=== PATIENT | male | born 1955 | race Asian ===

== ENCOUNTER 2017-10-29 07:55 | Inpatient (IN) | payer OTHER ==
[~2017-10-29] VITALS: Ht 160 cm; Wt 77.1 kg
[2017-10-29 07:56] VITALS: Ht 160 cm; Wt 77.1 kg
[2017-10-29 09:16] LABS: PLATELET COUNT 365 x10^3mcL (130-400)
[2017-10-29 09:23] LABS: BASOPHIL % 0 % (0-2); CALCIUM 8.5 mg/dL (8.5-10.1); CARBON DIOXIDE 28.4 mmol/L (21-32); CREATININE SERUM 1.4 mg/dL (0.7-1.3); POTASSIUM SERUM 3.9 mmol/L (3.5-5.1); RED CELL DISTRIBUTION WIDTH 21.2 % (11.5-14.5)
[2017-10-29 09:29] LABS: ALBUMIN 3.5 g/dL (3.4-5.0); BILIRUBIN TOTAL 0.28 mg/dL (0.20-1.00); PHOSPHOROUS 3.4 mg/dL (2.5-4.9); TOTAL PROTEIN, SERUM 6.8 g/dL (6.4-8.2)
[2017-10-29 09:53] LABS: ovalocyte/elliptocyte 2+; rbc morphology (normal/abnorm) ABNORMAL (NORMAL)
[2017-10-29] MEDS ORDERED: LOSARTAN POTASS50 M1 PO (10:01)
[2017-10-29] MEDS ORDERED: NOR5 PO (10:02)
[2017-10-29] MEDS ORDERED: METFORMIN HCL500 MG PO (10:03)
[2017-10-29] MEDS ORDERED: PRAVASTATIN SOD20 M1 PO (10:04)
[2017-10-29] MEDS ORDERED: FENOFIBRATE MI134 MG PO (10:05)
[2017-10-29] MEDS ORDERED: DILTIAZEM HCL30 MG PO (10:06)
[2017-10-29] MEDS ORDERED: ALLOPURINOL300 M1 PO (10:07)
[2017-10-29] MEDS ORDERED: GLIMEPIRIDE2 M1 PO (10:08)
[2017-10-29 10:13] LABS: microscopic required? NO
[2017-10-29 10:46] LABS: urine erythrocyte NEGATIVE (NEGATIVE)
[2017-10-29 10:55] LABS: T3 TOTAL 0.77 ng/mL
[2017-10-29 10:59] LABS: MAGNESIUM 1.9 mg/dL (1.8-2.4)
[2017-10-29 11:07] LABS: CHOLESTEROL/HDL RATIO 2.8
[2017-10-29 11:11] LABS: FREE T4 1.07 ng/dL (0.76-1.46); FREE THYROXINE INDEX 2.8 ug/dL (1.4-4.5); T4(THYROXINE) 7.7 ug/dL (4.7-13.3)
[2017-10-29 11:58] VITALS: BP 122/73
[2017-10-29 14:50] LABS: AMPHETAMINE QUAL UR NONE DETECTED (NEG <=1000)
[2017-10-29 15:14] LABS: PLATELET COUNT 421 x10^3mcL (130-400); RED CELL DISTRIBUTION WIDTH 23.6 % (11.5-14.5)
[2017-10-29 16:40] LABS: BAND NEUTROPHIL 2 % (0-10); MONOCYTE 7 % (0-7); SEGMENTED NEUTROPHILS 71 % (37-75); rbc morphology (normal/abnorm) ABNORMAL (NORMAL)
[2017-10-29 16:41] LABS: PLATELET MORPHOLOGY PLATELETS INCREASED; ovalocyte/elliptocyte 1+; tear drop cell (dacryocyte) 1+
[2017-10-29 17:55] VITALS: BP 118/74
[2017-10-29 21:17] VITALS: BP 141/80
[2017-10-30 04:47] LABS: BASOPHIL % 0.2 % (0-2)
[2017-10-30 04:48] LABS: CALCIUM 8.8 mg/dL (8.5-10.1); CARBON DIOXIDE 26.2 mmol/L (21-32); CREATININE SERUM 1.7 mg/dL (0.7-1.3); PHOSPHOROUS 2.7 mg/dL (2.5-4.9); URIC ACID 5.2 mg/dL (3.5-7.2)
[2017-10-30 04:49] LABS: PLATELET COUNT 415 x10^3mcL (130-400); RED CELL DISTRIBUTION WIDTH 23.6 % (11.5-14.5)
[2017-10-30 12:56] VITALS: BP 125/65
[2017-10-30 17:10] VITALS: BP 112/68
[2017-10-30 19:30] VITALS: BP 103/69
[2017-10-30 20:34] VITALS: BP 105/69
[2017-10-31 05:31] VITALS: BP 114/71
[2017-10-31 07:44] LABS: CALCIUM 8.6 mg/dL (8.5-10.1); CARBON DIOXIDE 24.8 mmol/L (21-32); CREATININE SERUM 1.3 mg/dL (0.7-1.3); MAGNESIUM 1.9 mg/dL (1.8-2.4); PHOSPHOROUS 3.4 mg/dL (2.5-4.9); POTASSIUM SERUM 4.9 mmol/L (3.5-5.1)
[2017-10-31 08:17] LABS: PLATELET COUNT 393 x10^3mcL (130-400)
[2017-10-31 08:20] LABS: BASOPHIL % 2.1 % (0-2); RED CELL DISTRIBUTION WIDTH 24.1 % (11.5-14.5)
[2017-10-31 08:21] LABS: rbc morphology (normal/abnorm) ABNORMAL (NORMAL)
[2017-10-31 10:13] VITALS: BP 115/72
[2017-10-31 14:17] VITALS: BP 113/65
[2017-10-31 17:41] VITALS: BP 109/65
[2017-10-31 21:15] VITALS: BP 132/73
[2017-11-01 05:43] VITALS: BP 115/67
[2017-11-01 06:35] LABS: CALCIUM 8.6 mg/dL (8.5-10.1); CARBON DIOXIDE 26.8 mmol/L (21-32); CHLORIDE SERUM 108 mmol/L (98-107); CREATININE SERUM 1.2 mg/dL (0.7-1.3); GFR1 > 60 mL/min; GLUCOSE SERUM 100 mg/dL (74-106); MAGNESIUM 2.1 mg/dL (1.8-2.4); PHOSPHOROUS 4.3 mg/dL (2.5-4.9); POTASSIUM SERUM 4.6 mmol/L (3.5-5.1); SODIUM SERUM 141 mmol/L (136-145)
[2017-11-01 08:36] LABS: PLATELET COUNT 410 x10^3mcL (130-400); RED CELL DISTRIBUTION WIDTH 23.9 % (11.5-14.5)
[2017-11-01 09:04] LABS: BAND NEUTROPHIL 1 % (0-10); MONOCYTE 8 % (0-7); SEGMENTED NEUTROPHILS 60 % (37-75)
[2017-11-01 09:05] LABS: rbc morphology (normal/abnorm) ABNORMAL (NORMAL)
[2017-11-01 09:50] VITALS: BP 136/78
[2017-11-01 17:23] VITALS: BP 128/77
[2017-11-01 20:48] VITALS: BP 141/75
[2017-11-02] VITALS (7 sets, daily range): BP systolic 123–152; BP diastolic 60–94
[2017-11-02 06:24] LABS: BASOPHIL % 1.2 % (0-2); PLATELET COUNT 344 x10^3mcL (130-400)
[2017-11-02 06:53] LABS: CALCIUM 8.5 mg/dL (8.5-10.1); CARBON DIOXIDE 24.1 mmol/L (21-32); CHLORIDE SERUM 105 mmol/L (98-107); CREATININE SERUM 1.2 mg/dL (0.7-1.3); GFR1 > 60 mL/min; GLUCOSE SERUM 103 mg/dL (74-106); PHOSPHOROUS 4.2 mg/dL (2.5-4.9); POTASSIUM SERUM 3.9 mmol/L (3.5-5.1); SODIUM SERUM 141 mmol/L (136-145)
[2017-11-02 07:02] LABS: rbc morphology (normal/abnorm) ABNORMAL (NORMAL)
[2017-11-02 14:24] LABS: TOTAL IRON BINDING CAPACITY 402 ug/dL (250-450)
[2017-11-02 14:32] LABS: IRON 23 ug/dL (65-170)
[2017-11-02 15:44] LABS: RED BLOOD CELLS 4.46 M/mm3 (4.52-5.90)
[2017-11-03 05:50] VITALS: BP 135/82
[2017-11-03 06:24] LABS: BASOPHIL % 0.9 % (0-2); PLATELET COUNT 366 x10^3mcL (130-400)
[2017-11-03 06:45] LABS: CALCIUM 9.6 mg/dL (8.5-10.1); CARBON DIOXIDE 24.9 mmol/L (21-32); CREATININE SERUM 1.6 mg/dL (0.7-1.3); MAGNESIUM 2.1 mg/dL (1.8-2.4); PHOSPHOROUS 4.1 mg/dL (2.5-4.9); POTASSIUM SERUM 4.2 mmol/L (3.5-5.1)
[2017-11-03 06:56] LABS: RED CELL DISTRIBUTION WIDTH 27.6 % (11.5-14.5)
[2017-11-03 10:04] VITALS: BP 145/81
[2017-11-03] MEDS ORDERED: FER300 PO (13:48)
[2017-11-03] MEDS ORDERED: DUL5 PO (13:49)
[2017-11-03] MEDS ORDERED: COL100 PO (13:50)
[2017-11-03] MEDS ORDERED: METP PO (13:50)
[2017-11-03] MEDS ORDERED: TYLENOL325 M1 PO (14:32)
[2017-11-03] MEDS ORDERED: NORCO1 TA1 PO (14:33)
[2017-11-03 14:38] VITALS: BP 145/81
== END 2017-11-03 15:55 | disposition home or self-care (01) | DRG 952 ==
LOC: ED 07:55 → DU 09:50 → MU 11-02 07:49
PROVIDERS: Emergency Medicine; Family Medicine; Internal Medicine Gastroenterology; Surgery
PROC: 30233N1 Transfusion of Nonautologous Red Blood Cells into Peripheral Vein, Percutaneous Approach (ICD-10-PCS; 2017-10-29)
PROC: 0DB68ZX Excision of Stomach, Via Natural or Artificial Opening Endoscopic, Diagnostic (ICD-10-PCS; 2017-10-30 08:00)
PROC: 0DJD8ZZ Inspection of Lower Intestinal Tract, Via Natural or Artificial Opening Endoscopic (ICD-10-PCS; 2017-10-30 08:00)
PROC: 06BY3ZC Excision of Hemorrhoidal Plexus, Percutaneous Approach (ICD-10-PCS; principal; 2017-11-02 08:00)
DX: E11.649 Type 2 diabetes mellitus with hypoglycemia without coma (principal); N17.0 Acute kidney failure with tubular necrosis; G93.41 Metabolic encephalopathy; D64.9 Anemia, unspecified; K64.8 Other hemorrhoids; I10 Essential (primary) hypertension; K64.9 Unspecified hemorrhoids; Z68.30 Body mass index [BMI] 30.0-30.9, adult; E78.5 Hyperlipidemia, unspecified; E66.9 Obesity, unspecified
CPT/HCPCS: 43235; 45378; 82962; 83880; 84439; 94150; A9500; J0690; J1200; J1610; J1885; J2001; J2175; J2250; J2270; J2310; J2405; J2704; J2785; J3010; J3490; J7030; J7040; J7050; P9016; Q0092; Q0163